=== PATIENT | male | born 1960 | race Caucasian/White ===

== ENCOUNTER 2019-07-03 12:10 | Emergency (ER) | payer MEDICARE, MEDICAID ==
[~2019-07-03] VITALS: Ht 170.2 cm; Wt 75.0 kg
[2019-07-03 12:13] VITALS: BP 140/91
== END 2019-07-03 15:00 | disposition left against medical advice (07) ==
LOC: ER 12:32
DX: R11.2 Nausea with vomiting, unspecified (principal); Z53.21 Procedure and treatment not carried out due to patient leaving prior to being seen by health care provider
CPT/HCPCS: 99283

== ENCOUNTER → 2019-07-03 | Emergency (ER) | payer MEDICARE, MEDICAID ==
[~2019-07-03] VITALS: Ht 172.7 cm; Wt 75.0 kg
[2019-07-03 17:48] VITALS: BP 120/90
== END | disposition left against medical advice (07) ==
LOC: ER 17:46
DX: R11.2 Nausea with vomiting, unspecified (principal); Z53.21 Procedure and treatment not carried out due to patient leaving prior to being seen by health care provider

== ENCOUNTER 2019-07-04 13:49 | Inpatient (IN) | payer MEDICARE, MEDICAID ==
[~2019-07-04] VITALS: Ht 170.2 cm; Wt 53.5 kg
[2019-07-04] MEDS ORDERED: MORPHINE SULFATE 4 MG/ML CPJ (NOT FOR IM USE) IV STA (14:42)
[2019-07-04] MEDS ORDERED: SODIUM CHLORIDE 0.9% 1,000 ML IV ONE (14:42)
[2019-07-04] MEDS ORDERED: ONDANSETRON HCL 4MG/2ML INJ IV STA (14:42)
[2019-07-04 14:59] LABS: HEMATOCRIT. 35.7 % (42.0-52.0); HEMOGLOBIN. 12.1 g/dL (14.0-18.0); MEAN CORPUSCULAR HEMOGLOBIN 29.2 pg (28.0-32.0); MEAN CORPUSCULAR VOLUME 86.3 fL (80.0-94.0); MEAN PLATELET VOLUME 7.4 fl (7.4-10.4); PLATELET 326 x1000/uL (130-400); RED BLOOD CELL COUNT 4.13 mill/uL (4.7-6.1); RED CELL DISTRIBUTION WIDTH 16.1 % (11.6-14.6)
[2019-07-04 15:08] LABS: CHLORIDE 78 mEq/L (98-107)
[2019-07-04 15:12] LABS: ETHANOL BLOOD < 10 mg/dL
[2019-07-04 15:15] LABS: PARTIAL THROMBOPLASTIN TIME 25.2 sec (23.4-31.0); PROTHROMBIN TIME 10.6 sec (9.6-11.0)
[2019-07-04 15:29] LABS: CLARITY URINE CLEAR (CLEAR); COLOR URINE YELLOW (YELLOW); KETONES URINE NEGATIVE (NEGATIVE); LEUKOCYTE ESTERASE URINE NEGATIVE (NEGATIVE); NITRITE URINE NEGATIVE (NEGATIVE); OCCULT BLOOD URINE NEGATIVE (NEGATIVE); PROTEIN URINE 1+ (NEGATIVE); SPECIFIC GRAVITY URINE 1.025 (1.005-1.030)
[2019-07-04] MEDS ORDERED: KCL 20MEQ/100ML PREMIX 100 ML IV ONE (15:30)
[2019-07-04 15:41] LABS: PLATELET ESTIMATE NORMAL
[2019-07-04 15:41] LABS: *BENZODIAZEPINES SCREEN URINE NEGATIVE (NEGATIVE); *COCAINE SCREEN URINE NEGATIVE (NEGATIVE); METHADONE URINE SCREEN NEGATIVE (NEGATIVE); OPIATES URINE SCREEN NEGATIVE (NEGATIVE)
[2019-07-04 15:42] LABS: *AMPHETAMINES SCREEN URINE NEGATIVE (NEGATIVE); *BARBITURATES SCREEN URINE NEGATIVE (NEGATIVE); CANNABINOID URINE SCREEN NEGATIVE (NEGATIVE); PHENCYCLIDINE URINE SCREEN NEGATIVE (NEGATIVE)
[2019-07-04] MEDS ORDERED: HYDRALAZINE 20MG/ML VIAL IV PRN (20:15)
[2019-07-04] MEDS ORDERED: NA PHOS,M-B/NA PHOS,DI-BA ENEMA 118ML PR PRN (20:15)
[2019-07-04] MEDS ORDERED: DEXTROSE 50% WATER 50ML SYRINGE IV PRN (20:15)
[2019-07-04] MEDS ORDERED: ACETAMINOPHEN 325MG TABLET PO PRN (20:15)
[2019-07-04] MEDS ORDERED: HYDROCODONE/ACETAMINOPHEN 10/325MG TABLET PO PRN (20:15)
[2019-07-04] MEDS ORDERED: CLONIDINE 0.1MG TABLET PO PRN (20:15)
[2019-07-04] MEDS ORDERED: MORPHINE SULFATE 2 MG/ML CPJ (NOT FOR IM USE) IV PRN (20:15)
[2019-07-04] MEDS ORDERED: LORAZEPAM 2MG/ML CPJ IV PRN (20:15)
[2019-07-04] MEDS ORDERED: ONDANSETRON HCL 4MG/2ML INJ IV PRN (20:15)
[2019-07-04] MEDS ORDERED: DIPHENHYDRAMINE 50MG/ML VIAL IV PRN (20:15)
[2019-07-04] MEDS ORDERED: GUAIFENESIN 200MG/10ML SUGAR FREE UDC PO PRN (20:15)
[2019-07-04] MEDS ORDERED: MAGNESIUM/ALUMINUM HYDROXIDE/SIMETHICONE 30ML UDC PO PRN (20:15)
[2019-07-04] MEDS ORDERED: IPRATROPIUM/ALBUTEROL 0.5-3(2.5)MG/3ML NEB NEB PRN (20:15)
[2019-07-04] MEDS ORDERED: DOCUSATE SODIUM 100MG CAPSULE PO PRN (20:15)
[2019-07-04] MEDS: DEXT 5%/0.45% NACL 1000ML 1,000 ML IV SCH (21:14)
[2019-07-04 23:20] LABS: CREATINE KINASE 386 IU/L (39-308)
[2019-07-04 23:21] LABS: CREATINE KINASE MB FRACTION 4.7 ng/mL (0.5-3.6)
[2019-07-05] VITALS (7 sets, daily range): BP systolic 89–102; BP diastolic 56–67
[2019-07-05 05:42] LABS: HEMATOCRIT. 31.3 % (42.0-52.0); HEMOGLOBIN. 10.6 g/dL (14.0-18.0); MEAN CORPUSCULAR HEMOGLOBIN 29.3 pg (28.0-32.0); MEAN CORPUSCULAR VOLUME 86.4 fL (80.0-94.0); MEAN PLATELET VOLUME 7.2 fl (7.4-10.4); PLATELET 284 x1000/uL (130-400); RED BLOOD CELL COUNT 3.62 mill/uL (4.7-6.1); RED CELL DISTRIBUTION WIDTH 16.2 % (11.6-14.6)
[2019-07-05 05:58] LABS: CHLORIDE 84 mEq/L (98-107)
[2019-07-05] MEDS: SODIUM CHLORIDE 0.9% INJ 3ML FLUSH IVF SCH ×3 (06:00→21:48)
[2019-07-05 06:10] LABS: LDL CHOLESTEROL 66 mg/dL (5-100)
[2019-07-05 06:11] LABS: CREATINE KINASE 316 IU/L (39-308); HDL CHOLESTEROL 57 mg/dL (40-59)
[2019-07-05 06:14] LABS: CREATINE KINASE MB FRACTION 5.4 ng/mL (0.5-3.6)
[2019-07-05] MEDS: BLOOD SUGAR DIAGNOSTIC STRIP TEST SCH ×4 (08:02→20:28)
[2019-07-05] MEDS: INSULIN LISPRO 100 UNITS/ML SUBCUT SCH ×4 (08:02→20:28)
[2019-07-05 08:20] LABS: PLATELET ESTIMATE NORMAL
[2019-07-05] MEDS ORDERED: KCL 20MEQ/100ML PREMIX 100 ML IV NR (08:30)
[2019-07-05] MEDS: DEXT 5%/0.45% NACL 1000ML 1,000 ML IV SCH ×2 (08:44→20:12)
[2019-07-05] MEDS: PANTOPRAZOLE SODIUM 40 MG/VIAL IV SCH ×2 (11:46→21:49)
[2019-07-05 12:18] LABS: HEMATOCRIT 32.9 % (42.0-52.0); HEMOGLOBIN 11.1 g/dL (14.0-18.0)
[2019-07-05 14:24] LABS: HEPATITIS B SURFACE ANTIGEN NEGATIVE
[2019-07-05 14:25] LABS: FERRITIN 15 ng/mL (22-322)
[2019-07-05] MEDS ORDERED: MULTIVITAMINS,THER W-MINERALS TABLET PO SCH (14:30)
[2019-07-05] MEDS ORDERED: THIAMINE HCL 100MG TABLET PO SCH (14:30)
[2019-07-05 14:33] LABS: FOLIC ACID (FOLATE) SERUM > 20.00 ng/mL (>5.38)
[2019-07-05 14:39] LABS: VITAMIN B12 SERUM 747 pg/mL (211-911)
[2019-07-05] MEDS: CHLORDIAZEPOXIDE 25MG CAPSULE PO SCH ×2 (14:39→21:48)
[2019-07-05 14:54] LABS: HEPATITIS A AB IGM NEGATIVE (NEGATIVE)
[2019-07-05 17:35] LABS: HEMATOCRIT 29.3 % (42.0-52.0)
[2019-07-06 00:56] VITALS: BP 82/51
[2019-07-06 01:09] LABS: HEMATOCRIT 29.5 % (42.0-52.0)
[2019-07-06 01:56] VITALS: BP 92/61
[2019-07-06 03:56] VITALS: BP 93/60
[2019-07-06 04:45] VITALS: BP 92/58
[2019-07-06] MEDS: CHLORDIAZEPOXIDE 25MG CAPSULE PO SCH (05:44)
[2019-07-06] MEDS: BLOOD SUGAR DIAGNOSTIC STRIP TEST SCH (05:44)
[2019-07-06] MEDS: SODIUM CHLORIDE 0.9% INJ 3ML FLUSH IVF SCH (05:44)
[2019-07-06 05:57] VITALS: BP 86/39
[2019-07-06 06:40] LABS: HEMATOCRIT 30.3 % (42.0-52.0); HEMOGLOBIN 10.1 g/dL (14.0-18.0)
[2019-07-06 06:43] VITALS: BP 102/56
== END 2019-07-06 08:07 | disposition left against medical advice (07) | DRG 380 ==
LOC: ER 13:49 → 3WST 17:33 → ENRESERV 07-05 11:40 → CANBEDREQ 07-05 16:34
PROVIDERS: ADMIT Internal Medicine; ATTEND Internal Medicine
DX: K31.1 Adult hypertrophic pyloric stenosis (principal); G93.41 Metabolic encephalopathy; B19.10 Unspecified viral hepatitis B without hepatic coma; E87.6 Hypokalemia; D64.9 Anemia, unspecified; D72.829 Elevated white blood cell count, unspecified; E11.9 Type 2 diabetes mellitus without complications; F10.10 Alcohol abuse, uncomplicated; Z53.29 Procedure and treatment not carried out because of patient's decision for other reasons; F20.9 Schizophrenia, unspecified; K40.90 Unilateral inguinal hernia, without obstruction or gangrene, not specified as recurrent; K20.9 Esophagitis, unspecified; K76.89 Other specified diseases of liver; Z59.0 Homelessness; Z78.1 Physical restraint status
CPT/HCPCS: 36415; 71045; 74018; 74176; 80053; 80061; 80305; 80320; 81003; 82140; 82270; 82550; 82553; 82607; 82728; 82746; 82962; 83540; 83550; 83735; 83880; 84132; 84484; 85014; 85018; 85025; 86705; 86709; 86803; 86850; 86900; 87340; 93005; 93970; 99291; C9113; J2270; J2405; J3480; J7030; G0480